=== PATIENT | male | born 1955 | race Caucasian/White ===

== ENCOUNTER 2018-06-17 14:59 | Emergency (ER) | payer SELFPAY ==
[~2018-06-17] VITALS: Ht 175.3 cm; Wt 96.8 kg
[~2018-06-17 14:59] MED LIST: ACTOS15 MG PO; CRESTOR20 MG PO; HYDROCODONE BIT1 TA3 PO; JANUVIA25 MG PO; MILK OF MA400 MG/5 M PO; PEPCID 20MG TAB20 MG PO; PERCOCET 325 MG1 TA2 PO; PHENERGAN 25 TA25 MG PO; PHENERGAN25 MG RC; TRICOR48 MG PO; [UNRECOGNIZED DRUG - OTHER]
[2018-06-17 15:04] VITALS: BP 134/73; PULSE 84; TEMP 98
[2018-06-17] MEDS ORDERED: SOLIQUA 100 UNIT3 ML SQ (15:37)
[2018-06-17] MEDS ORDERED: NEURONTIN300 MG/CAP PO (15:37)
[2018-06-17] MEDS ORDERED: XIGDUO10/1000 (15:38)
[2018-06-17] MEDS ORDERED: CRESTOR 10MG10 MG PO (15:38)
[2018-06-17] MEDS ORDERED: ACTOS30 MG PO (15:38)
[2018-06-17] MEDS ORDERED: TYLENOL W/COD1 UDTAB PO (15:50)
== END 2018-06-17 16:21 | disposition home or self-care (01) ==
LOC: COL.ER 14:59
DX: S50.12XA Contusion of left forearm, initial encounter (principal); E11.9 Type 2 diabetes mellitus without complications; E78.5 Hyperlipidemia, unspecified; Z79.4 Long term (current) use of insulin; W22.8XXA Striking against or struck by other objects, initial encounter; Y92.89 Other specified places as the place of occurrence of the external cause

== ENCOUNTER → 2018-08-16 | Outpatient (CLI) | payer OTHER ==
[~2018-08-16] MED LIST changes: +ACTOS30 MG PO; +CRESTOR 10MG10 MG PO; +NEURONTIN300 MG/CAP PO; +SOLIQUA 100 UNIT3 ML SQ; +TYLENOL W/COD1 UDTAB PO; +XIGDUO10/1000
== END ==
LOC: COL.RAD 07:24
DX: S46.012A Strain of muscle(s) and tendon(s) of the rotator cuff of left shoulder, initial encounter (principal); M19.012 Primary osteoarthritis, left shoulder

== ENCOUNTER 2018-08-17 15:24 | Outpatient (RCR) | payer OTHER | END 2018-10-27 | disposition home or self-care (01) | LOC: WSOH | DX: S50.12XD Contusion of left forearm, subsequent encounter (principal); M25.512 Pain in left shoulder; W20.8XXD Other cause of strike by thrown, projected or falling object, subsequent encounter; Y92.39 Other specified sports and athletic area as the place of occurrence of the external cause; Y99.0 Civilian activity done for income or pay; Z79.84 Long term (current) use of oral hypoglycemic drugs; Z79.899 Other long term (current) drug therapy ==

== ENCOUNTER 2019-03-16 18:55 | Emergency (ER) | payer BC, OTHER ==
[~2019-03-16] VITALS: Ht 175.3 cm; Wt 96.4 kg
[2019-03-16 19:11] VITALS: TEMP 99.4
[2019-03-16] MEDS ORDERED: PRINIVIL5 MG PO (20:01)
[2019-03-16] MEDS ORDERED: FLOMAX 0.40.4 MG/CAP PO (21:22)
[2019-03-16 21:41] VITALS: BP 105/83; PULSE 90
== END 2019-03-16 21:44 | disposition home or self-care (01) ==
LOC: COL.ER 18:55
DX: K56.41 Fecal impaction (principal); R33.9 Retention of urine, unspecified; Z79.4 Long term (current) use of insulin

== ENCOUNTER → 2019-11-25 | Outpatient (CLI) | payer OTHER, BC ==
[~2019-11-25] MED LIST changes: +FLOMAX 0.40.4 MG/CAP PO; +PRINIVIL5 MG PO
== END ==
LOC: COL.RAD 08:02
DX: M75.121 Complete rotator cuff tear or rupture of right shoulder, not specified as traumatic (principal); S46.111A Strain of muscle, fascia and tendon of long head of biceps, right arm, initial encounter; S46.811A Strain of other muscles, fascia and tendons at shoulder and upper arm level, right arm, initial encounter; M19.011 Primary osteoarthritis, right shoulder; Z98.890 Other specified postprocedural states

== ENCOUNTER → 2020-09-04 | Outpatient (CLI) | payer OTHER, BC | LOC: ZCOL.LAB 20:17 | DX: Z20.828 Contact with and (suspected) exposure to other viral communicable diseases (principal) ==

== ENCOUNTER → 2021-02-19 | Outpatient (CLI) | payer OTHER | LOC: COL.RAD 08:04 | DX: M75.121 Complete rotator cuff tear or rupture of right shoulder, not specified as traumatic (principal); Z98.890 Other specified postprocedural states | CPT/HCPCS: A9585; Q9967 ==

== ENCOUNTER 2021-07-08 09:48 | Outpatient (RCR) | payer OTHER | END 2021-09-22 | disposition home or self-care (01) | LOC: WSOH | DX: S60.222A Contusion of left hand, initial encounter (principal); M51.36 Other intervertebral disc degeneration, lumbar region; E11.40 Type 2 diabetes mellitus with diabetic neuropathy, unspecified; E78.00 Pure hypercholesterolemia, unspecified; Z90.49 Acquired absence of other specified parts of digestive tract; Z98.890 Other specified postprocedural states; Z79.4 Long term (current) use of insulin; W22.8XXA Striking against or struck by other objects, initial encounter | CPT/HCPCS: 24091; A6549 ==

== ENCOUNTER 2021-11-18 15:00 | Outpatient (RCR) | payer OTHER | END 2021-11-29 | disposition home or self-care (01) | LOC: WSPT | DX: S60.222D Contusion of left hand, subsequent encounter (principal); M51.36 Other intervertebral disc degeneration, lumbar region; E78.00 Pure hypercholesterolemia, unspecified; E11.40 Type 2 diabetes mellitus with diabetic neuropathy, unspecified; Z98.890 Other specified postprocedural states; Z90.49 Acquired absence of other specified parts of digestive tract; Y99.0 Civilian activity done for income or pay | CPT/HCPCS: G0283-GP ==

== ENCOUNTER 2021-12-02 14:42 | Outpatient (RCR) | payer OTHER | END 2021-12-30 | LOC: WSPT | DX: S60.222D Contusion of left hand, subsequent encounter (principal); M51.36 Other intervertebral disc degeneration, lumbar region ==

== ENCOUNTER 2022-01-04 19:38 | Inpatient (IN) | payer BC ==
[~2022-01-04] VITALS: Ht 175.3 cm; Wt 99.0 kg
[2022-01-04 20:13] LABS: BASO # 0.1 K/mm3 (0.0-0.2); BASO % 0.7 % (0.0-2.0); EOS # 0.1 K/mm3 (0.0-0.7); EOS % 0.7 % (0.0-4.0); GRAN # 8.9 K/mm3 (1.4-6.5); GRAN % 74.7 % (42.2-75.2); HEMATOCRIT 43.3 % (42.0-52.0); HEMOGLOBIN 14.6 g/dl (13.5-18.0); LYMPH # 1.8 K/mm3 (1.2-3.4); LYMPH % 15.2 % (20.0-51.0); MEAN CELL VOLUME 86 fl (80.0-100.0); MEAN CORPUSCULAR HEMOGLOBIN 29 pg (27-31); MEAN CORPUSCULAR HGB CONC 34 g/dl (33.0-37.0); MEAN PLATELET VOLUME 11.2 fl (7.4-10.4); MONO # 0.9 K/mm3 (0.1-0.6); MONO % 7.8 % (1.7-9.3); PLATELET COUNT 216 K/mm3 (130-400); RED BLOOD COUNT 5.06 M/mm3 (4.20-5.60)
[2022-01-04 20:31] LABS: BILIRUBIN,TOTAL 0.4 mg/dL (0.2-1.2); C-REACTIVE PROTEIN 0.22 mg/dL (0.00-0.50); CALCIUM 9.8 mg/dL (8.4-10.2); CREATININE, serum 1.11 mg/dL (0.72-1.25); POTASSIUM 4.1 mmol/L (3.5-4.5); TOTAL PROTEIN 7.2 gm/dL (6.2-8.1)
[2022-01-04 22:05] LABS: COLLECTION METHOD CLEAN CATCH
[2022-01-04 22:15] LABS: PH 5 (5-8); SQUAMOUS EPITHELIAL None Seen /hpf (0-10); URINE APPEARANCE Clear (CLEAR/HAZY); URINE BACTERIA None Seen /hpf (NONE SEEN); URINE BILIRUBIN Negative (NEGATIVE); URINE BLOOD Negative (NEGATIVE); URINE COLOR Straw (YELLOW); URINE GLUCOSE 3+ (NEGATIVE); URINE KETONE Negative (NEGATIVE); URINE LEUKOCYTE ESTERASE Negative (NEGATIVE); URINE NITRATE Negative (NEGATIVE); URINE PROTEIN(semi-quant) Negative (NEGATIVE); URINE RBC None Seen /hpf (0-2); URINE UROBILINOGEN Negative (NEGATIVE)
[2022-01-05] VITALS (7 sets, daily range): BP systolic 128–150; BP diastolic 63–82; PULSE 57–77; TEMP 97.3–99.5
[2022-01-05] MEDS ORDERED: XIGDUO5/1000 PO (00:38)
[2022-01-05] MEDS ORDERED: CRESTOR20 MG PO (00:38)
[2022-01-05] MEDS ORDERED: NOVOLOG MIX 70/33 ML SQ (00:39)
[2022-01-05] MEDS ORDERED: TRICOR145 MG PO (01:47)
[2022-01-05] MEDS ORDERED: NEURONTIN300 MG/CAP PO (01:49)
[2022-01-05] MEDS ORDERED: MOTRIN 200200 MG/TAB PO (01:50)
[2022-01-05] MEDS ORDERED: ADVIL200 MG PO (01:50)
[2022-01-05] MEDS ORDERED: TUMS500 MG (01:51)
--- NOTE | 2022-01-05 02:14 | NUR ---
Admitted to medical floor from ER,, DX pancreatitis, VSS, pleasant, oriented x4, Sitting in recliner at this time, does not want a gown, would prefer to stay in shorts and a t-shirt. Has glasses, bilteral hearing aides, cell phone, pager at bedside. States abd pain 4/10-was given Morphne as ordered. On C.L diet. Iv fluids of NS at 250cc/hr
--- NOTE | 2022-01-05 05:53 | NUR ---
Has been resting quietly- Did get Morphine IV x2 this shift for abd pain 06/08. Iv fluids of NS at 250cc/hr. Voiding.
[2022-01-05 06:57] LABS: BASO # 0.1 K/mm3 (0.0-0.2); BASO % 0.5 % (0.0-2.0); EOS # 0.1 K/mm3 (0.0-0.7); EOS % 0.7 % (0.0-4.0); GRAN # 7.8 K/mm3 (1.4-6.5); HEMATOCRIT 40.8 % (42.0-52.0); HEMOGLOBIN 13.6 g/dl (13.5-18.0); LYMPH # 1.8 K/mm3 (1.2-3.4); LYMPH % 16.1 % (20.0-51.0); MEAN CELL VOLUME 86 fl (80.0-100.0); MEAN CORPUSCULAR HEMOGLOBIN 29 pg (27-31); MEAN CORPUSCULAR HGB CONC 33 g/dl (33.0-37.0); MEAN PLATELET VOLUME 11.9 fl (7.4-10.4); MONO # 1.1 K/mm3 (0.1-0.6); MONO % 9.9 % (1.7-9.3); PLATELET COUNT 182 K/mm3 (130-400); RED BLOOD COUNT 4.72 M/mm3 (4.20-5.60)
[2022-01-05 07:02] LABS: CALCIUM 8.9 mg/dL (8.4-10.2); CHOLESTEROL RISK RATIO 5.8; CREATININE, serum 1.05 mg/dL (0.72-1.25); POTASSIUM 4.3 mmol/L (3.5-4.5)
--- NOTE | 2022-01-05 08:00 | NUR ---
PT PLEASANT, AOX4, PT REPORTS PAIN 07/09 SAYING "IT FEELS EVEN WORSE THAN WHEN I CAME IN" , ASSESSMENT PERFORMED, MEDICATIONS GIVEN, PAIN MEDICATION GIVEN WITH TUMS PER PT REQUEST, PT WANTING TO DRINK LOTS OF FLUIDS AND EAT, ENCOURAGED SLOWING DOWN ON FLUIDS TO REST BOWELS. PT WANTING SOMETHING FOR CONSTIPATION, REPORTS LAST BM YESTERDAY MORNING. STATES "I DON'T WANT THIS STUFF TO BACK ME UP, ITS HAPPENED BEFORE".
--- NOTE | 2022-01-05 11:52 | NUR ---
Jairo met with the pt who stated his preference to return home once medically stable. The pt lives at home with his . Miracle, . The pt reports no issues with ADLS and does use a glucometer. The pt pcp is Juarez Kamara and gets his medications from [facility]. The pt reports no DPOA-HC and is not interested at this time. No other needs stated, sw to await further recommendations and follow up as needed. DC Plan: Home w/
--- NOTE | 2022-01-05 15:23 | NUR ---
DR. GAUTAM GAVE VERBAL ORDER TO CHANGE FLUIDS TO 100ML/HR. CALLED ALSO TO ADDRESS PAIN MEDICATION
--- NOTE | 2022-01-05 16:54 | NUR ---
CONSULT CALLED TO DR. HOU
--- NOTE | 2022-01-06 00:05 | NUR ---
ASSESSMENT COMPLETE FOR THIS SHIFT. PT RESTING IN HIS RECLINER WITH HIS BY HIS SIDE. PT COMPLAINED OF SOME ABD PAIN, BUT WANTED TO WAIT UNTIL AFTER 2030HRS BEFORE GETTING PAIN MEDICATION. PT GIVEN ULTRAM FOR PAIN. PAIN MEDICATION EFFECTIVE PER PT. PT DENIED PALPITATIONS, SOB, N,V,D OR DIZZINESS. PT EXPRESSED NO OTHER NEEDS AT THIS TIME. CALL LIGHT WITHIN REACH.
[2022-01-06 03:45] VITALS: BP 130/74; PULSE 66; TEMP 98.1
[2022-01-06 06:51] LABS: BASO % 0.4 % (0.0-2.0); EOS # 0.2 K/mm3 (0.0-0.7); EOS % 1.7 % (0.0-4.0); GRAN # 6.6 K/mm3 (1.4-6.5); GRAN % 67.8 % (42.2-75.2); HEMATOCRIT 40.9 % (42.0-52.0); HEMOGLOBIN 13.7 g/dl (13.5-18.0); LYMPH # 1.5 K/mm3 (1.2-3.4); LYMPH % 15.4 % (20.0-51.0); MEAN CELL VOLUME 86 fl (80.0-100.0); MEAN CORPUSCULAR HEMOGLOBIN 29 pg (27-31); MEAN CORPUSCULAR HGB CONC 34 g/dl (33.0-37.0); MEAN PLATELET VOLUME 11.4 fl (7.4-10.4); MONO # 1.4 K/mm3 (0.1-0.6); MONO % 14.1 % (1.7-9.3); PLATELET COUNT 168 K/mm3 (130-400); RED BLOOD COUNT 4.78 M/mm3 (4.20-5.60)
[2022-01-06 07:21] LABS: ALBUMIN 3.2 gm/dL (3.4-4.8); CALCIUM 8.5 mg/dL (8.4-10.2); CREATININE, serum 0.77 mg/dL (0.72-1.25); MAGNESIUM 1.9 mg/dL (1.6-2.6); PHOSPHOROUS 2.6 mg/dL (2.3-4.7); POTASSIUM 3.8 mmol/L (3.5-4.5)
[2022-01-06 07:39] VITALS: BP 135/64; PULSE 73; TEMP 97.7
--- NOTE | 2022-01-06 08:05 | NUR ---
Pt assessment complete. Pt is laying in bed upon entry, he is A/O x4. His breathing is even and unlabored on RA. Pt denies SOB. Some nausea and pain present. PRN medications administered. Pt reports tenderness to abdomen with palpation. POC discussed with patient, he will be NPO until U/S of abdomen is complete followed by a fat controlled diet. No further needs at this time. Call light within reach.
[2022-01-06 11:25] VITALS: BP 104/53; PULSE 68; TEMP 98.6
--- NOTE | 2022-01-06 13:49 | NUR ---
First visit from the principal ios developer. No needs right now.
[2022-01-06 16:39] VITALS: BP 116/58; PULSE 66; TEMP 99.9
--- NOTE | 2022-01-06 18:45 | NUR ---
Pt had uneventful day. Intermittent pain to abdomen and L side. No further nausea through the day. Does have complaints of constipation. Tolerating low fat diet without issues.
[2022-01-06 19:59] VITALS: BP 113/58; PULSE 65; TEMP 98
--- NOTE | 2022-01-06 20:00 | NUR ---
Patient is in the chair, alert and oriented x 4, VSS, states constant pain in his left upper abd. PRN provided. Receiving NS 50 ml/hr. Assessment completed, medications provided. No further needs at this time. Call light within reach.
[2022-01-06 23:59] VITALS: BP 113/60; PULSE 62; TEMP 98.8
[2022-01-07 03:51] VITALS: BP 116/72; PULSE 62; TEMP 98.5
[2022-01-07 06:54] LABS: CALCIUM 8.6 mg/dL (8.4-10.2); CREATININE, serum 0.83 mg/dL (0.72-1.25); MAGNESIUM 2.1 mg/dL (1.6-2.6); PHOSPHOROUS 2.6 mg/dL (2.3-4.7); POTASSIUM 3.9 mmol/L (3.5-4.5)
[2022-01-07 06:55] LABS: BASO # 0.1 K/mm3 (0.0-0.2); BASO % 0.7 % (0.0-2.0); EOS # 0.2 K/mm3 (0.0-0.7); EOS % 3.2 % (0.0-4.0); GRAN # 4.2 K/mm3 (1.4-6.5); GRAN % 55.1 % (42.2-75.2); HEMATOCRIT 38.1 % (42.0-52.0); HEMOGLOBIN 12.8 g/dl (13.5-18.0); LYMPH # 1.8 K/mm3 (1.2-3.4); LYMPH % 23.5 % (20.0-51.0); MEAN CELL VOLUME 88 fl (80.0-100.0); MEAN CORPUSCULAR HEMOGLOBIN 29 pg (27-31); MEAN CORPUSCULAR HGB CONC 34 g/dl (33.0-37.0); MEAN PLATELET VOLUME 11.5 fl (7.4-10.4); MONO # 1.3 K/mm3 (0.1-0.6); MONO % 16.6 % (1.7-9.3); PLATELET COUNT 152 K/mm3 (130-400); RED BLOOD COUNT 4.35 M/mm3 (4.20-5.60); REDCELL DISTRIBUTION WIDTH-CV 12.9 % (11.5-14.5)
--- NOTE | 2022-01-07 07:09 | NUR ---
Patient had a calm night. He asked for pain medication before going to sleep and no more after that. Continue getting IV fluids at 50ml/hr. Report given to day RN.
[2022-01-07 07:38] VITALS: BP 112/72; PULSE 95; TEMP 98.2
--- NOTE | 2022-01-07 09:00 | NUR ---
Patient sitting up in bed A&Ox4. Reports pain in left side. No pain medication requested. VSS. IV CDI, fluids infusing. Reports to BM. Independent in the room. No further needs expressed. Call light within reach
[2022-01-07] MEDS ORDERED: CRESTOR40 MG PO (09:35)
[2022-01-07] MEDS ORDERED: SENNA-S 50 MG-81 TAB PO (09:36)
[2022-01-07] MEDS ORDERED: MIRALAX510G PO (09:39)
[2022-01-07] MEDS ORDERED: ULTRAM 50MG TAB50 MG PO (09:40)
--- NOTE | 2022-01-07 10:50 | NUR ---
Operations Management Trainee attended clinical rounds with the team. Patient to discharge home today.
[2022-01-07 11:36] VITALS: BP 125/58; PULSE 68; TEMP 98.1
--- NOTE | 2022-01-07 12:57 | NUR ---
Patient ambulated independently to the ER entrance with family. Discharge paperwork and personal belongings with the patient. No further needs expressed.
== END 2022-01-07 12:57 | disposition home or self-care (01) | DRG 439 ==
LOC: COL.ER 19:38 → MEDICAL 23:26
PROVIDERS: Physician Assistant; Student in an Organized Health Care Education/Training Program; ADMIT Internal Medicine
DX: K85.90 Acute pancreatitis without necrosis or infection, unspecified (principal); K86.3 Pseudocyst of pancreas; I10 Essential (primary) hypertension; E78.5 Hyperlipidemia, unspecified; E11.9 Type 2 diabetes mellitus without complications; Z90.49 Acquired absence of other specified parts of digestive tract; N40.0 Benign prostatic hyperplasia without lower urinary tract symptoms; D72.829 Elevated white blood cell count, unspecified; K76.0 Fatty (change of) liver, not elsewhere classified; E78.1 Pure hyperglyceridemia; Z79.4 Long term (current) use of insulin; Z23 Encounter for immunization
CPT/HCPCS: 99223-AI; 99232-AI; 99233-AI; 99239; J1170; J1650; J1815; J1885; J2270; J2405; J7030; Q9967

== ENCOUNTER 2023-02-16 09:45 | Outpatient (RCR) | payer BC ==
[~2023-02-16 09:45] MED LIST changes: +ADVIL200 MG PO; +CRESTOR40 MG PO; +MIRALAX510G PO; +MOTRIN 200200 MG/TAB PO; +NOVOLOG MIX 70/33 ML SQ; +SENNA-S 50 MG-81 TAB PO; +TRICOR145 MG PO; +TUMS500 MG; +ULTRAM 50MG TAB50 MG PO; +XIGDUO5/1000 PO
== END 2023-02-27 | disposition home or self-care (01) ==
LOC: WSPT
DX: M54.41 Lumbago with sciatica, right side (principal); E11.42 Type 2 diabetes mellitus with diabetic polyneuropathy; Z23 Encounter for immunization; E78.5 Hyperlipidemia, unspecified; N52.8 Other male erectile dysfunction; J31.0 Chronic rhinitis; L57.0 Actinic keratosis

== ENCOUNTER 2024-07-27 08:03 | Outpatient (RCR) | payer BC | END 2024-07-30 | LOC: WSPT | DX: M96.1 Postlaminectomy syndrome, not elsewhere classified (principal); M48.061 Spinal stenosis, lumbar region without neurogenic claudication; M51.16 Intervertebral disc disorders with radiculopathy, lumbar region; Z98.890 Other specified postprocedural states ==